=== PATIENT | male | born 1945 | race Caucasian/White ===

== ENCOUNTER 2017-02-26 23:15 | Emergency (ER) | payer OTHER ==
[~2017-02-26 23:15] MED LIST: MIDAZOLAM 5 MG/1 ML IV ONE; SUCCINYLCHOLINE CHLORIDE 20 MG/1 ML - 10 ML IVP ONE; fentaNYL Inj 100 MCG/2 ML VIAL IVP ONE
[2017-02-26] MEDS ORDERED: DEXAMETHASONE PF 10 MG/1 ML VIAL ONE (23:20)
[2017-02-26] MEDS ORDERED: diphenhydrAMINE 50 MG/1 ML VIAL ONE (23:20)
[2017-02-26] MEDS ORDERED: FAMOTIDINE 20 MG/2 ML VIAL IVP ONE (23:21)
[2017-02-26] MEDS ORDERED: EPINEPHrine Inj (1:1,000) 1 mg/ml amp ONE (23:23)
[2017-02-26] MEDS ORDERED: DEXAMETHASONE PF 10 MG/1 ML VIAL IVP ONE (23:25)
[2017-02-26] MEDS ORDERED: diphenhydrAMINE 50 MG/1 ML VIAL IVP ONE (23:25)
[2017-02-26] MEDS ORDERED: Sodium Chloride 0.9% 1,000 ML PRIMARY IV ONE (23:30)
[2017-02-26] MEDS ORDERED: SUCCINYLCHOLINE CHLORIDE 20 MG/1 ML - 10 ML IVP ONE (23:55)
[2017-02-26] MEDS ORDERED: PROPOFOL 10 MG/1 ML (100 ML) IV ONE (23:55)
[2017-02-26] MEDS ORDERED: ETOMIDATE 2 MG/1 ML - 20 ML IVP ONE (23:55)
[2017-02-26] MEDS ORDERED: MIDAZOLAM 5 MG/1 ML IVP ONE ×2 (23:55)
[2017-02-26] MEDS ORDERED: fentaNYL Inj 100 MCG/2 ML VIAL IVP ONE ×2 (23:55)
[2017-02-27] MEDS ORDERED: DIAZEPAM 10 MG/2 ML (5 MG/1 ML) CARPUJECT ONE (00:12)
--- NOTE | 2017-02-27 00:18 | PDOC ---
Allergy Symptoms HPI - General Chief Complaint: Allergic Reaction/Anaphylaxis Stated Complaint: SWOLLEN TONGUE Date Seen by Provider: 02/27/17 Time Seen by Provider: 23:15 Source: POSITIVE: Patient, Spouse Exam Limitations: POSITIVE: No limitations Nurse's Notes Reviewed & Considered: Yes - History of Present Illness Initial Comments: This is a very pleasant 71-year-old male who comes in today with a swollen tongue. Patient was in his normal state of health tonight at a 8:45 when he went to bed. He woke his that 15 minutes after 9 complaining of his tongue swelling. He took Benadryl and then awoke his at 10:30 PM with increased swelling of his tongue. She brought him here to the emergency department for further evaluation. During the obtaining of history it was learned that he had a similar episode a year ago in February 2016 with a swollen tongue that required intubation and transfer to [facility]. At that time it was felt he had a submandibular infection was treated with antibiotics. A week ago this last Saturday he had an anterior cervical fusion performed in [facility]. This past Saturday he began to develop swelling of his face. He and his left for [place] and while in route the swelling resolved so he returned home. Upon further questioning of his he was learned that the patient's neighbor was spraying weed killer on Saturday which is the day the facial swelling began. Patient denies any headache, no sore throat, no chest pain or shortness of breath, no nausea vomiting or diarrhea, no hematuria or dysuria, no arthralgias or myalgias, no rashes. Body Location Affected: REPORTS: Neck Timing: REPORTS: Abrupt Duration: 1-3 hours Severity: Severe Associated Symptoms: REPORTS: Swelling, Troubles Swallowing, Troubles Speaking Identified Causes: REPORTS: No Where Exposed: REPORTS: Home Similar Symptoms Previously: Yes Recent Care Received: REPORTS: Recently Seen, Treated by MD, Hospitalized, Surgery Treatment Prior To Arrival: REPORTS: No Treatment MDM SR Any Prior Injuries Related to Current Complaint?: No - Patient Home Medications Home Medications: Home Medications NK [No Home Medications Reported] 02/27/17 - Patient Allergies Allergies/Adverse Reactions: Allergies Allergy/AdvReac Type Severity Reaction Status Date / Time azithromycin Allergy Anaphylaxis Unverified 09/20/16 13:00 [From Zithromax Z-Lopez] Past Medical History - heen HEENT History: Denies History Cardiovascular History: Denies History Respiratory History: Denies History Gastrointestinal History: Denies History Genitourinary History: Denies History Endocrine History: Denies History Musculoskeletal History: Other (please comment) Prosthesis or Implant: Yes Additional Musculoskeletal History: HX BILAT LE FXS. PLATES IN BOTH Neurological History: Denies History Blood Disorders: Denies History Psychiatric History: Denies History Cancer History: Other (please comment) Cancer Treatment / Date(s) of Treatment: Saturday03/06/16 History of MDRO: No Alcohol Use: Other Substance Use Type: None Previous Surgical History: Yes Type / Date of Surgery: BILAT LE AND TURP Anesthesia Reactions: No ROS - Limitations ROS Limitations: No Limitations Constitution: REPORTS: Denies Symptoms Cardiovascular: REPORTS: Denies Cardiac Symptoms Respiratory: REPORTS: Denies Resp Symptoms Neurological: REPORTS: Denies Neuro Symptoms Gastrointestinal: REPORTS: Denies GI Symptoms Endocrine: REPORTS: Denies Symptoms Musculoskeletal: REPORTS: Denies MS Symptoms Genitourinary: REPORTS: Denies Symptoms Eyes: REPORTS: Denies Symptoms ENT: REPORTS: Trouble Swallowing, Tongue Swelling, Throat Swelling Skin: REPORTS: Denies Skin Symptoms Lympathic: REPORTS: Denies Lympathic Symptoms Immunologic: POSITIVE: Denies Symptoms Psychiatric: POSITIVE: Denies Psych Symptoms Allergy Symptoms Physical Exam - General Appearance General Appearance: POSITIVE: Alert, Cooperative, No Evidence of Trauma, Severe Distress - HEENT Head / Face: POSITIVE: Atraumatic, Normal Inspection, No Facial Swelling Eyes: POSITIVE: Inspection Normal, PERRL, EOM's Intact, Eyelids Uninjured, Conjunctivae Uninjured, No Nystagmus, No Globe Trauma, Sclera Normal, Normal Corneal Inspection Ears: POSITIVE: Ears Normal Inspection, Auricle Normal Nose: POSITIVE: Inspection Normal, No Apparent Trauma, Nares Normal, No CSF Leak Oropharynx: POSITIVE: External Inspection Nml, Moist Mucous Membranes, Angioedema (tongue) Dental: POSITIVE: No Dental Injury - Pupils Pupil Size: 5 mm: Bilateral - Neck Neck: POSITIVE: Normal Inspection, No Apparent Injury - Respiratory Respiratory: POSITIVE: No Respiratory Distress, Breath Sounds Normal - Cardiovascular Cardiovascular: POSITIVE: Regular Rate and Rhythm, Heart Sounds Normal, Equal Pulses, Strong Pulses Peripheral Pulses: Radial (R): 4+, Radial (L): 4+ - Abdomen Abdomen: Soft: (All Quadrants), Normal Bowel Sounds: (All Quadrants), Denies Tenderness: (All Quadrants), No Splenomegaly: (All Quadrants), No Hepatomegaly: (All Quadrants), No Guarding: (All Quadrants), No Rebound: (All Quadrants), No Palpable Pulse: (All Quadrants), No Palpabale Mass: (All Quadrants), No Distention: (All Quadrants), No Rigidity: (All Quadrants) - Skin Skin: POSITIVE: Intact, Normal For Race, Warm, Dry, No Rash - Extremities Extremity: Non-Tender: (All Extremities), Normal ROM: (All Extremities), Normal Inspection: (All Extremities) - Neurological / Psychological Neurological: POSITIVE: Oriented X3, Motor Normal, Sensation Normal Procedure - Intubation Intubation Indications: Airway Protection Intubation Preparation: Equipment Checked, Glassware Maker Demonstrator Applied, Cont. SpO2 Monitoring, BMV Set Up, Airway Suctioned Pre-Oxygenation Provided: Assisted with BMV, 100% FiO2 Pretreatment Medications Given - Indicate Amount Given: Yes Fentanyl (75 mcg) Induction Medications Given - Indicate Amount Given: Yes Etomidate Paralytic Medication Given - Indicate Amount Given: Yes Succinylcholine Intubation Position: C-Spine Protection, Cords Visualized Intubation Method: Orotracheal, Cuffed, Complicated Placement, Curved Blade Tube Size (cm): 7.5 Number of Attempts: 2 Intubation Placement Confirmed: Capnometry: Yes, CO2 Detector Changed to Yellow : Yes, Mist Fogging in Tube: Yes, Symmetrical Chest Rise: Yes, Bilateral Breath Sounds: Yes, Chest X-Ray: Yes Tube Secured By:: Dr. Marlow and respiratory therapist Tube at Teeth (#): 25 Intubation Complications: Oral-unsuccessful attempt (Initial attempt using an 8 endotracheal tube was aborted because of difficulty passing the tube secondary to edema present) Allergy Symptoms Progress - Results Reviewed by Me Xrays/CTs/US Reviewed by me: Yes Discussed with Radiologist: No Lab Results Reviewed: Yes Lab Results:: Laboratory Results 02/27/17 02/27/17 Range/Units 00:00 00:27 WBC 10.23 (4.8-10.8) 10^3/uL RBC 4.82 (4.70-6.10) 10^6/uL Hgb 14.1 (14.0-18.0) g/dL Hct 40.2 L (42.0-52.0) % MCV 83.4 (80-90) FL MCH 29.3 (27-31) PG MCHC 35.1 (33-37) g/dL RDW Std Deviation 37.5 L (39-50) fL RDW Coeff of Ruby 12.5 (11.5-14.5) % Plt Count 358 H (140-350) 10*3/uL MPV 9.2 (7.4-12.2) FL Immature Gran % (Auto) 0.8 (0-5) % Neut % (Auto) 58.2 (50-80) % Lymph % (Auto) 25.0 (10-50) % Preston % (Auto) 11.4 (5-15) % Eos % (Auto) 4.2 (0-8) % Baso % (Auto) 0.4 (0-1) % Immature Gran # (Auto) 0.08 10*3/UL Neut # (Auto) 5.95 10*3/UL Lymph # (Auto) 2.56 10*3/uL Preston # (Auto) 1.17 H (0.3-0.8) 10*3/UL Eos # (Auto) 0.43 10*3/UL Baso # (Auto) 0.04 10*3/UL WBC Morphology Comment Normal morphology (NORM) Plt Morphology Comment Normal morphology (NORM) RBC Morph Comment Normal morphology (NORM) ABG pH 7.32 L (7.35-7.45) ABG pCO2 45 H (34-38) MMHG ABG pO2 67 (65-75) MMHG ABG HCO3 23 (22-26) ABG Total CO2 25 (23-27) MMOL/L ABG O2 Saturation 91 (90-100) % ABG Base Excess -3 L (-2-2) MMOL/L [place] Test Y FiO2 25% fio2 via vent Sodium 136 (135-145) meq/L Potassium 4.1 (3.8-5.2) meq/L Chloride 99 (98-112) meq/L Carbon Dioxide 24 (23-33) meq/L Anion Gap 13 (5-20) BUN 21 (7-22) mg/dL Creatinine 1.1 (0.70-1.50) mg/dL Estimated GFR Cloud Services Architect BUN/Creatinine Ratio 19.09 (6-20) Glucose 99 (78-110) mg/dL Calculated Osmolality 284.0 (267-292) mOsm/kg Calcium 9.4 (8.7-10.7) mg/dL Magnesium 2.2 (1.6-2.4) mg/dL Total Bilirubin 0.5 (0.3-1.2) mg/dL AST 54 (21-57) IU/L ALT 81 H (21-72) IU/L Alkaline Phosphatase 124 (38-126) IU/L C-Reactive Protein 3.2 H (0.0-0.9) mg/dL Total Protein 7.3 (6.1-8.0) g/dL Albumin 4.0 (3.5-4.8) g/dL Globulin 3.3 (2.50-4.10) g/dL Albumin/Globulin Ratio 1.20 L (1.3-2.0) mg/g EKG Interpretation:: POSITIVE: Normal Sinus Rhythm - Treatment Nebulizer Treatment Given:: No Treatment: POSITIVE: Oxygen, IV Fluids, Diphenhydramine, Dexamethasone, Famotidine - Patient's Progress Pain Medication Addressed: POSITIVE: Yes Re-examine Time: 01:00 Status: POSITIVE: Improved MDM / ED Course: Patient was evaluated, an IV started in each arm, blood drawn and sent to the lab for studies, radiographic examination was obtained. Patient received rapid sequence intubation drugs including succinylcholine and etomidate, he was pre- treated with fentanyl. He was intubated with a 7.5 endotracheal tube, a orogastric tube and Daniel catheter were placed. Patient was transferred to [facility] for rn community care. Assessment: Angioedema. Plan: Protection of airway via intubation and transfer to tertiary care facility. - Consult Consult (If Yes, Name of Consulting MD & Time Called): Yes (Dr. Damon) Consulting MD will see pt:: POSITIVE: Recommended Transfer Counseled: POSITIVE: Patient, Family, RE: Lab Results, RE: Radiology Results, RE : DX Patient Care Time - Estimated PCT Patient Care Time (In Minutes): 90 Vital Signs - VS Reviewed Vital Signs Reviewed: Yes Critical Care Note - Critical Care Note Total Time (mins): 75 Critical Care: Life Threatening Scenario (Angioedema with pending respiratory blockage.) History Source: Patient, Family Discharge Clinical Impression: Angioedema Discharge Disposition: Transferred to Tertiary Care Facility Condition: Serious Patient Instructions Given at Discharge: Angioedema (ED) Follow Up With: ALEJANDRO DUTTA [STAFF PHYSICIAN] - 08/23/17 9:30 am ALMAS SNOW [Primary Care Provider] - Date Decision to Transfer to Another Facility: 02/27/17 Time Decision to Transfer to Another Facility: 00:30
[2017-02-27 00:20] LABS: BASOPHILS # (AUTO) 0.04 10*3/UL; BASOPHILS % (AUTO) 0.4 % (0-1); EOSINOPHILS # (AUTO) 0.43 10*3/UL; EOSINOPHILS % (AUTO) 4.2 % (0-8); HEMATOCRIT 40.2 % (42.0-52.0); HEMOGLOBIN 14.1 g/dL (14.0-18.0); LYMPHOCYTES # (AUTO) 2.56 10*3/uL; MEAN CORPUSCULAR HEMOGLOBIN 29.3 PG (27-31); MEAN CORPUSCULAR HGB CONC 35.1 g/dL (33-37); MEAN CORPUSCULAR VOLUME 83.4 FL (80-90); MEAN PLATELET VOLUME 9.2 FL (7.4-12.2); MONOCYTES # (AUTO) 1.17 10*3/UL (0.3-0.8); MONOCYTES % (AUTO) 11.4 % (5-15); NEUTROPHILS # (AUTO) 5.95 10*3/UL; NEUTROPHILS % (AUTO) 58.2 % (50-80); RED BLOOD COUNT 4.82 10^6/uL (4.70-6.10)
[2017-02-27 00:21] LABS: PLATELET MORPHOLOGY COMMENT NORMAL MORPHOLOGY (NORM); RBC MORPHOLOGY COMMENT NORMAL MORPHOLOGY (NORM); WBC MORPHOLOGY COMMENT NORMAL MORPHOLOGY (NORM)
[2017-02-27 00:31] LABS: BLOOD UREA NITROGEN 21 mg/dL (7-22); BUN/CREATININE RATIO 19.09 (6-20)
[2017-02-27 00:32] LABS: C-REACTIVE PROTEIN 3.2 mg/dL (0.0-0.9); CALCIUM 9.4 mg/dL (8.7-10.7); MAGNESIUM 2.2 mg/dL (1.6-2.4)
[2017-02-27] MEDS ORDERED: VECURONIUM BROMIDE 10 MG VIAL ONE (00:43)
[2017-02-27 00:57] LABS: ABG BASE EXCESS -3 MMOL/L (-2-2); ABG OXYGEN SATURATION 91 % (90-100); ABG PCO2 45 MMHG (34-38); ABG PH 7.32 (7.35-7.45); ABG PO2 67 MMHG (65-75); ALLEN TEST Y; COLLECTION SITE R Rad X1
--- NOTE | 2017-02-27 01:26 | DI ---
HISTORY: Status post intubation. COMPARISON: None available. FINDINGS: An endotracheal tube is seen in place and is 3.7 cm from the kolby. The enteric tube ext ends beneath the diaphragm. Mild central venous congestion is demonstrated. There is evidence of perihilar air space disease. IMPRESSION: 1. Endotracheal tube tip is 3.7 cm from the kolby and extends beneath the diaphragm. 2. Mild central venous congestion. 3. Perihilar air space disease. NOTIFICATION: The above findings were phoned to Shreya Houston in the ER Department on 02/26/2017 at 3:31am EST.
[2017-02-27 02:43] VITALS: RESP 15; TEMP 97.2
[2017-02-27] MEDS ORDERED: Famotidine Inj 20 MG in Normal Saline Flush 10 ML IVP ONE (03:44)
--- NOTE | 2017-02-27 03:45 | EKG ---
[address] [address] Measurements Intervals [place] Rate: 86 P: 63 IA: 161 QRS: 12 QRSD: 121 T: 103 QT: 387 QTc: 431 Interpretive Statements SINUS RHYTHM MODERATE INTRAVENTRICULAR CONDUCTION DELAY [110+ ms QRS DURATION] NONSPECIFIC ST & T-WAVE ABNORMALITY INTERPRETATION BASED ON A DEFAULT AGE OF 40 YEARS No previous ECG available for comparison Electronically Signed On 02-27-17 08:34:57 MDT by Hoang Franks MD [email or web address]
[2017-02-27] MEDS ORDERED: Sodium Chloride 0.9% 1,000 ML PRIMARY IV ONE (04:07)
== END 2017-02-27 01:18 | disposition short-term general hospital (02) ==
LOC: ER 23:15
DX: T78.3XXA Angioneurotic edema, initial encounter (principal); R13.19 Other dysphagia; R22.0 Localized swelling, mass and lump, head
CPT/HCPCS: 36600; 71010; 80053; 82785; 82803; 83735; 85025; 86140; 93005; 93010; 96361; 96374; 96375; 99291 ×2; J0330; J1100; J1200; J2250; J3010; J3360; S0028; J7030